=== PATIENT | male | born 1960 | race Caucasian/White ===

== ENCOUNTER 2017-07-23 14:06 | Observation (INO) | payer OTHER, SELFPAY ==
[2017-07-23] VITALS (9 sets, daily range): BP systolic 100–140; BP diastolic 63–86; PULSE 73–115; RESP 16–20; TEMP 36.6–37.3; O2SAT 96–100; BMI 21.6; BMI 20.7
[2017-07-23] MEDS: 0.9% Normal Saline 1,000 ML 1000 ML IV (14:59)
[2017-07-23 15:06] LABS: Absolute Neutrophil Count 8.5 X10^3/uL (2.0-7.7); Basophil# 0.05 X10^3/uL; Basophil% 0.4 % (0-1); Eosinophil# 0.03 X10^3/uL; Eosinophils% 0.3 % (0-5); Hematocrit 31.9 % (40-54); Hemoglobin 10.9 g/dl (13.0-16.5); Lymphocyte % 15.7 % (19-41); Mean Corp Hgb Conc 34.2 g/gl (32-36); Mean Corpuscular Hgb 31.1 pg (27.0-32.0); Mean Corpuscular Volume 91.1 fL (80-94); Mean Platelet Vol. 10.2 fl (6.2-12.0); Monocyte# 1.06 X10^3/uL; Monocyte% 9.2 % (0-10); Neutrophil # 8.48 X10^3/uL (2.7-7.7); Platelet Count 261 K/mm3 (150-450); RBC Distribution Width SD 37.7 fl (35.1-43.9); White Blood Count 11.5 K/mm3 (4.4-11.0)
[2017-07-23 15:10] LABS: Anion Gap 7 (5-15); BUN 48 mg/dL (7-18); BUN/Creat Ratio 41.4 RATIO (10-20); Calcium,Total 8.1 mg/dL (8.5-10.1); Chloride 109 mmol/L (98-107); Creatinine, Serum 1.16 mg/dL (0.70-1.30); EST Glomerular Filtration Rate 69 mL/min (>60); Est Glom Filt Rate - Afr Amer 83 mL/min (>60); Glucose 124 mg/dL (74-106); Sodium Level 139 mmol/L (136-145)
[2017-07-23 15:11] LABS: POSITIVE COUNT NO; POSITIVE DIFFERENTIAL NO; POSITIVE MORPHOLOGY NO
--- NOTE | 2017-07-23 15:37 | ED.VISSUMM ---
- ER Visit Summary Date of Service: 07/23/17 Chief Complaint: ['s of breath and lightheadedness] History of Present Illness: The patient is a 56 M [presents the emergency department with shortness of breath with exertion and lightheadedness. Patient states that symptoms worse with walking. Patient denies any chest pain. Patient has noted black tarry stool. Patient denies any vomiting or hematemesis. Patient has had no appetite. No history of bleeding ulcers. Patient has a history of coronary artery disease with three-vessel CABG last year. Patient is on Plavix.] Physical Examination: [HEENT-PERRLA, EOMI. Cranial nerves II through XII grossly intact. TMs clear. Mucous membranes moist. No adenopathy. Cardiovascular-regular rate and rhythm without murmur or ectopy Lungs-clear to auscultation, chest wall stable without crepitus or subcu emphysema Abdomen-normoactive bowel sounds, soft, nontender, no rebound or rigidity, no peritoneal signs. Rectal exam-has black tarry stool that Hemoccult positive, no masses noted in the rectal vault. Extremities-intact ?4, normal range of motion, normal pulses, atraumatic] Test Results: [CBC with differential obtained showed a white count of 11.5, hemoglobin 10.9, hematocrit 32, platelets 261. Chemistries unremarkable. BUN was 48 and creatinine was 1.16. Hemoccult was positive. Orthostatic vital signs pending.] Emergency Department Course and Treatment: [I suspect an upper GI bleed at this time. Patient case was discussed with Dr. Arun Crum who will see patient tomorrow for possible EGD. Case also discussed with hospitalist Dr. Alek Steinberg who will evaluate patient for admission.] Patient treated with Protonix 80 mg IV Treatment Plan: [Admit] Disposition: [Admit] Impression: [Upper GI bleed Anemia] This note was generated with [employer] dictation software. It may contain incorrect words, spelling, and punctuation that were not noted in review of the chart prior to signing ED Disposition - Plan for ED Patient: Chief Complaint: Shortness of Breath Referrals: Phu Banks MD [Primary Care Provider] -
--- NOTE | 2017-07-23 15:40 | EKG12_ITS ---
Test Reason : SOB Blood Pressure : / mmHG Vent. Rate : 082 BPM Atrial Rate : 082 BPM P-R Int : 118 ms QRS Dur : 090 ms QT Int : 414 ms P-R-T Axes : 046 -02 070 degrees QTc Int : 483 ms Normal sinus rhythm Nonspecific T wave abnormality Prolonged QT Abnormal ECG Confirmed by KELLY PEREA ([id number]), acquisitions editor NATE ALDRIDGE ([id number] on 07/27/2017 4:01:52 PM Referred By: JENNIFER Confirmed By:KELLY PEREA
--- NOTE | 2017-07-23 15:41 | PCM.HP.STD ---
Problem List (1) Carotid artery disease Status: Chronic Qualifiers: (2) History of coronary artery stent placement Status: Chronic Comment: PCI and NILS to mid LCX 02/28/16 @ [facility] (3) Ischemic cardiomyopathy Status: Chronic (4) S/P CABG (coronary artery bypass graft) Status: Chronic Comment: CABG x3, CASTRO to LAD, reverse saphenous vein to 1st diag and 1st OM; endoscopic vein harvesting, greater saphenous vein Rt Leg 04/13/16 @ [facility] (5) Coronary atherosclerosis of [place] coronary vessel Status: Chronic (6) Acute non-ST elevation myocardial infarction (NSTEMI) Status: Resolved (7) HTN (hypertension) Status: Chronic Qualifiers: (8) HLD (hyperlipidemia) Status: Chronic Qualifiers: History of Present Illness Date of Admission: 07/23/17 Chief Complaint: Shortness of breath, lightheadedness, dark stool. The patient is a 56 year old M who presents to the emergency room with black tarry stool for 2 days as well as associated shortness of breath and lightheadedness. Denies syncope. Denies nausea, vomiting, diarrhea. Denies abdominal pain. He states he has never had black stools in the past. Never had an EGD/colonoscopy. No history of GI bleed/ulcers. No frequent NSAID use. Patient is on aspirin and Plavix for history of CAD with three-vessel CABG March 2016. His other past medical history includes ischemic cardiomyopathy, hypertension, hyperlipidemia. Past Medical History Past Medical History (Chronic Problems): Chronic Problems (Last Updated 04/30/17 @ 09:15 by Bonita Latif) Carotid artery disease (Chronic) History of coronary artery stent placement (Chronic) PCI and NILS to mid LCX 02/28/16 @ [facility] Ischemic cardiomyopathy (Chronic) S/P CABG (coronary artery bypass graft) (Chronic) CABG x3, CASTRO to LAD, reverse saphenous vein to 1st diag and 1st OM; endoscopic vein harvesting, greater saphenous vein Rt Leg 04/13/16 @ [facility] Coronary atherosclerosis of [place] coronary vessel (Chronic) HTN (hypertension) (Chronic) HLD (hyperlipidemia) (Chronic) Allergies No Known Allergies Allergy (Verified 07/23/17 14:08) Home Medications: Ambulatory Orders Medication Instructions Recorded Aspirin E.C. [Ecotrin] 81 mg PO DAILY@0800 05/12/16 Mometasone/Formoterol [Dulera 100 1 puff IH DAILY 05/12/16 Mcg/5 Mcg Inhaler] Clopidogrel Bisulfate [Plavix] 75 mg PO DAILY 07/23/17 Metoprolol Tartrate [Lopressor 25 mg PO BID 07/23/17 (beta kriss)] Surgical History: appendectomy, herniorrhaphy - Hernia repair R&L inguinal, rotator cuff repair - Left rotator cuff , - - CABG ?3 Psychiatric History: No pertinent psych hx Lives: With Family - Lives with brother Smoking Status: Never smoker Tobacco Use: Non-smoker Alcohol: Occasional Drugs: None - *Family History Maternal History Items: Heart Disease Paternal History Items: Heart Disease Review of Systems Constitutional: Reports: Fatigue. Denies: Chills, Fever, Weight Change HEENT: Denies: Head Aches, Sinus Congestion, Sinus Drainage Cardiovascular: Reports: Light Headedness. Denies: Chest Pain, Palpitations, Syncope Respiratory: Reports: Shortness of Breath. Denies: Cough, Shortness of breath at rest, Sputum production Gastrointestinal: Denies: Abdominal Pain, Nausea, Vomiting Genitourinary: Denies: Dysuria Musculoskeletal: Denies: Joint Pain, Joint Tenderness Skin: Denies: Rash, Wounds Neurological: Denies: Numbness, Tingling, Focal weakness Psychiatric: Denies: Anxiety, Depression, Homicidal Ideations, Suicidal Ideations Hematologic/ Lymphatic: Denies: Easy Bruising, Easy Bleeding VTE Information - Inpt Only VTE Present on Admission: No VTE Mechan Device Prophylaxis: SCD's VTE Pharm Prophylaxis ordered?: No Reason prophylaxis not ordered:: Medical Contraindication - Physical Exam General: Alert, Oriented x3, Cooperative, No apparent distress HEENT: Atraumatic, PERRLA, EOMI, Normocephalic Neck: Supple, No JVD, Negative Carotid Bruits Lungs: Clear to auscultation, Normal air movement Cardiovascular: Regular rate, Regular Rhythm, Normal S1, Normal S2, No murmurs Abdomen: Bowel Sounds Present, Soft, Non Tender, Non-Distended Extremities: No clubbing, No cyanosis, No edema, Capillary Refill Less than 3 Seconds Skin: No rashes, No breakdown Musculoskeletal: No Tenderness to Palpation of Joints or Extremities Neurological: Cranial nerves II-XII grossly intact, Neuro grossly intact Psych/Mental Status: Normal Affect, Appropriate Vital Signs Temp Pulse Resp BP Pulse Ox 98 F 86 20 H 120/81 H 100 07/23/17 14:08 07/23/17 15:26 07/23/17 15:26 07/23/17 15:26 07/23/17 14:08 Oxygen Delivery Method Room Air Weight: 64.5 kg Body Mass Index (BMI) 21.6 Microbiology Past 72 Hours 07/23/17 14:42 Stool Occult Blood (LUISA) - Final Stool Occult Blood Positive Laboratory Tests Past 24 Hrs 07/23/17 07/23/17 07/23/17 14:34 14:34 14:34 WBC 11.5 H RBC 3.50 L Hgb 10.9 L Hct 31.9 L MCV 91.1 MCH 31.1 MCHC 34.2 RDW 12.0 RDW Differential 37.7 Plt Count 261 MPV 10.2 Immature Gran % (Auto) 0.400 Neut % (Auto) 74.0 H Lymph % (Auto) 15.7 L [place] % (Auto) 9.2 Eos % (Auto) 0.3 Baso % (Auto) 0.4 Absolute Neuts (auto) 8.5 H Absolute Lymphs (auto) 1.80 Total Counted Not Reportable Sodium 139 Potassium 4.0 Chloride 109 H Carbon Dioxide 23.0 Anion Gap 7 BUN 48 H Creatinine 1.16 Estim Creat Clear Calc 64.10 Est GFR (MDRD) Af Amer 83 Est GFR (MDRD) Non-Af 69 BUN/Creatinine Ratio 41.4 H Glucose 124 H Calcium 8.1 L Blood Type O POSITIVE Antibody Screen NEGATIVE Assessment/Plan 1. Hematochezia, suspected upper GI bleed-patient reports black tarry stools ?2 days with associated shortness of breath and dizziness. Stool positive for occult blood. Dr. Crum consulted who will perform EGD tomorrow. Continue IV Protonix. Hold aspirin and Plavix. 2. Acute blood loss anemia, secondary to #1-baseline hemoglobin 15. Hemoglobin on admission 10.9. Serial H&H. 3. Coronary artery disease, status post CABG ?3-aspirin, Plavix on hold secondary to #1. Continue metoprolol. 4. Ischemic cardiomyopathy-echocardiogram September 2016 showed an EF of 50%. 5. Hypertension-stable, continue home metoprolol regimen. 6. Hyperlipidemia-not on statin. DVT prophylaxis-SCDs, pharmacologic prophylaxis contraindicated given acute GI bleed. This patient was seen by ANT Peña under the supervision of Dr. Steinberg.
--- NOTE | 2017-07-23 15:51 | HP.PCM_ITS ---
Problem List (1) Carotid artery disease Status: Chronic Qualifiers: (2) History of coronary artery stent placement Status: Chronic Comment: PCI and NILS to mid LCX 02/28/16 @ [facility] (3) Ischemic cardiomyopathy Status: Chronic (4) S/P CABG (coronary artery bypass graft) Status: Chronic Comment: CABG x3, CASTRO to LAD, reverse saphenous vein to 1st diag and 1st OM; endoscopic vein harvesting, greater saphenous vein Rt Leg 04/13 @ [facility] (5) Coronary atherosclerosis of [place] coronary vessel Status: Chronic (6) Acute non-ST elevation myocardial infarction (NSTEMI) Status: Resolved (7) HTN (hypertension) Status: Chronic Qualifiers: (8) HLD (hyperlipidemia) Status: Chronic Qualifiers: History of Present Illness Date of Admission: 07/23/17 Chief Complaint: Shortness of breath, lightheadedness, dark stool. The patient is a 56 year old M who presents to the emergency room with black tarry stool for 2 days as well as associated shortness of breath and lightheadedness. Denies syncope. Denies nausea, vomiting, diarrhea. Denies abdominal pain. He states he has never had black stools in the past. Never had an EGD/colonoscopy. No history of GI bleed/ulcers. No frequent NSAID use. Patient is on aspirin and Plavix for history of CAD with three-vessel CABG March 2016. His other past medical history includes ischemic cardiomyopathy, hypertension, hyperlipidemia. Past Medical History Past Medical History (Chronic Problems): Chronic Problems (Last Updated 04/30/17 @ 09:15 by Bonita Latif) Carotid artery disease (Chronic) History of coronary artery stent placement (Chronic) PCI and NILS to mid LCX 02/28/16 @ [facility] Ischemic cardiomyopathy (Chronic) S/P CABG (coronary artery bypass graft) (Chronic) CABG x3, CASTRO to LAD, reverse saphenous vein to 1st diag and 1st OM; endoscopic vein harvesting, greater saphenous vein Rt Leg 04/13/16 @ [facility] Coronary atherosclerosis of [place] coronary vessel (Chronic) HTN (hypertension) (Chronic) HLD (hyperlipidemia) (Chronic) Allergies No Known Allergies Allergy (Verified 07/23/17 14:08) Home Medications: Ambulatory Orders Medication Instructions Recorded Aspirin E.C. [Ecotrin] 81 mg PO DAILY@0800 05/12/16 Mometasone/Formoterol [Dulera 100 1 puff IH DAILY 05/12/16 Mcg/5 Mcg Inhaler] Clopidogrel Bisulfate [Plavix] 75 mg PO DAILY 07/23/17 Metoprolol Tartrate [Lopressor 25 mg PO BID 07/23/17 (beta kriss)] Surgical History: appendectomy, herniorrhaphy - Hernia repair R&L inguinal, rotator cuff repair - Left rotator cuff , - - CABG ?3 Psychiatric History: No pertinent psych hx Lives: With Family - Lives with brother Smoking Status: Never smoker Tobacco Use: Non-smoker Alcohol: Occasional Drugs: None - *Family History Maternal History Items: Heart Disease Paternal History Items: Heart Disease Review of Systems Constitutional: Reports: Fatigue. Denies: Chills, Fever, Weight Change HEENT: Denies: Head Aches, Sinus Congestion, Sinus Drainage Cardiovascular: Reports: Light Headedness. Denies: Chest Pain, Palpitations, Syncope Respiratory: Reports: Shortness of Breath. Denies: Cough, Shortness of breath at rest, Sputum production Gastrointestinal: Denies: Abdominal Pain, Nausea, Vomiting Genitourinary: Denies: Dysuria Musculoskeletal: Denies: Joint Pain, Joint Tenderness Skin: Denies: Rash, Wounds Neurological: Denies: Numbness, Tingling, Focal weakness Psychiatric: Denies: Anxiety, Depression, Homicidal Ideations, Suicidal Ideations Hematologic/ Lymphatic: Denies: Easy Bruising, Easy Bleeding VTE Information - Inpt Only VTE Present on Admission: No VTE Mechan Device Prophylaxis: SCD's VTE Pharm Prophylaxis ordered?: No Reason prophylaxis not ordered:: Medical Contraindication - Physical Exam General: Alert, Oriented x3, Cooperative, No apparent distress HEENT: Atraumatic, PERRLA, EOMI, Normocephalic Neck: Supple, No JVD, Negative Carotid Bruits Lungs: Clear to auscultation, Normal air movement Cardiovascular: Regular rate, Regular Rhythm, Normal S1, Normal S2, No murmurs Abdomen: Bowel Sounds Present, Soft, Non Tender, Non-Distended Extremities: No clubbing, No cyanosis, No edema, Capillary Refill Less than 3 Seconds Skin: No rashes, No breakdown Musculoskeletal: No Tenderness to Palpation of Joints or Extremities Neurological: Cranial nerves II-XII grossly intact, Neuro grossly intact Psych/Mental Status: Normal Affect, Appropriate Vital Signs Temp Pulse Resp BP Pulse Ox 98 F 86 20 H 120/81 H 100 07/23/17 14:08 07/23/17 15:26 07/23/17 15:26 07/23/17 15:26 07/23/17 14:08 Oxygen Delivery Method Room Air Weight: 64.5 kg Body Mass Index (BMI) 21.6 Microbiology Past 72 Hours 07/23/17 14:42 Stool Occult Blood (LUISA) - Final Stool Occult Blood Positive Laboratory Tests Past 24 Hrs 07/23/17 07/23/17 07/23/17 14:34 14:34 14:34 WBC 11.5 H RBC 3.50 L Hgb 10.9 L Hct 31.9 L MCV 91.1 MCH 31.1 MCHC 34.2 RDW 12.0 RDW Differential 37.7 Plt Count 261 MPV 10.2 Immature Gran % (Auto) 0.400 Neut % (Auto) 74.0 H Lymph % (Auto) 15.7 L [place] % (Auto) 9.2 Eos % (Auto) 0.3 Baso % (Auto) 0.4 Absolute Neuts (auto) 8.5 H Absolute Lymphs (auto) 1.80 Total Counted Not Reportable Sodium 139 Potassium 4.0 Chloride 109 H Carbon Dioxide 23.0 Anion Gap 7 BUN 48 H Creatinine 1.16 Estim Creat Clear Calc 64.10 Est GFR (MDRD) Af Amer 83 Est GFR (MDRD) Non-Af 69 BUN/Creatinine Ratio 41.4 H Glucose 124 H Calcium 8.1 L Blood Type O POSITIVE Antibody Screen NEGATIVE Assessment/Plan 1. Hematochezia, suspected upper GI bleed-patient reports black tarry stools ? 2 days with associated shortness of breath and dizziness. Stool positive for occult blood. Dr. Crum consulted who will perform EGD tomorrow. Continue IV Protonix. Hold aspirin and Plavix. 2. Acute blood loss anemia, secondary to #1-baseline hemoglobin 15. Hemoglobin on admission 10.9. Serial H&H. 3. Coronary artery disease, status post CABG ?3-aspirin, Plavix on hold secondary to #1. Continue metoprolol. 4. Ischemic cardiomyopathy-echocardiogram September 2016 showed an EF of 50%. 5. Hypertension-stable, continue home metoprolol regimen. 6. Hyperlipidemia-not on statin. DVT prophylaxis-SCDs, pharmacologic prophylaxis contraindicated given acute GI bleed. This patient was seen by ANT Peña under the supervision of Dr. Steinberg.
--- NOTE | 2017-07-23 17:21 | PCA ---
rn in with pt
[2017-07-23 17:40] LABS: Hematocrit 29.6 % (40-54); Hemoglobin 9.9 g/dl (13.0-16.5)
[2017-07-23] MEDS: Metoprolol Tartrate 25 MG Tablet PO (22:05)
[2017-07-23] MEDS: 0.9% NaCl Peripheral Flush Adult/Peds IV (22:13)
[2017-07-23 22:59] LABS: Hematocrit 26.2 % (40-54); Hemoglobin 8.9 g/dl (13.0-16.5)
[2017-07-24] VITALS (10 sets, daily range): BP systolic 93–126; BP diastolic 54–67; PULSE 66–81; RESP 16–18; TEMP 36.5–36.9; O2SAT 95–100
[2017-07-24 08:51] LABS: Hemoglobin 9.4 g/dl (13.0-16.5)
[2017-07-24] MEDS: Metoprolol Tartrate 25 MG Tablet PO ×2 (09:06→22:13)
[2017-07-24] MEDS: 0.9% NaCl Peripheral Flush Adult/Peds IV ×2 (09:20→22:16)
--- NOTE | 2017-07-24 09:35 | PCM.PROGNOTE ---
Subjective: Patient seen and examined. States he had a another episode of black stool last evening. No further bowel movement. Denies dizziness, lightheadedness. Denies chest pain, shortness of breath. Aware of plan for EGD/colonoscopy tomorrow. Denies further complaints or concerns. - Physical Exam General: Alert, Oriented x3, Cooperative, No apparent distress HEENT: Atraumatic, PERRLA, EOMI, Normocephalic Neck: Supple, No JVD, Negative Carotid Bruits Lungs: Clear to auscultation, Normal air movement Cardiovascular: Regular rate, Regular Rhythm, Normal S1, Normal S2, No murmurs Abdomen: Bowel Sounds Present, Soft, Non Tender, Non-Distended Extremities: No clubbing, No cyanosis, No edema, Capillary Refill Less than 3 Seconds Skin: No rashes, No breakdown Musculoskeletal: No Tenderness to Palpation of Joints or Extremities Neurological: Cranial nerves II-XII grossly intact, Neuro grossly intact Psych/Mental Status: Normal Affect, Appropriate Vital Signs Temp Pulse Resp BP Pulse Ox 97.7 F L 75 16 102/67 98 07/24/17 08:58 07/24/17 09:06 07/24/17 08:58 07/24/17 09:06 07/24/17 08:58 Oxygen Delivery Method Room Air Weight: 61.9 kg Body Mass Index (BMI) 20.7 Intake and Output for Last 24 Hours 07/22/17 07/23/17 07/24/17 23:59 23:59 23:59 Intake Total 100 / 100 1100 / 1100 Output Total 350 / 350 750 / 750 Balance -250 / -250 350 / 350 Laboratory Tests Past 24 Hrs 07/23/17 07/23/17 07/24/17 17:18 22:30 08:40 Hgb 9.9 L 8.9 L 9.4 L Hct 29.6 L 26.2 L 28.0 L Medical Necessity - Tobacco Use Smoking Status: Never smoker Tobacco Use: Non-smoker Assessment/Plan Patient is a 56-year-old male admitted 07/23/17 shortness of breath, lightheadedness, dark stool. His past medical history includes CAD, three-vessel CABG, ischemic cardiomyopathy, hypertension, hyperlipidemia. 1. Hematochezia, suspected upper GI bleed-patient reports black tarry stools ?2 days with associated shortness of breath and dizziness. Stool positive for occult blood. Dr. Crum consulted. Continue IV Protonix. Hold aspirin and Plavix. N.p.o. at midnight for EGD/colonoscopy tomorrow. 2. Acute blood loss anemia, secondary to #1-baseline hemoglobin 15. Hemoglobin on admission 10.9. Hemoglobin now 9.4. Repeat H&H in morning. 3. Coronary artery disease, status post CABG ?3-aspirin, Plavix on hold secondary to #1. Continue metoprolol. 4. Ischemic cardiomyopathy-echocardiogram September 2016 showed an EF of 50%. 5. Hypertension-stable, continue home metoprolol regimen. 6. Hyperlipidemia-not on statin. DVT prophylaxis-SCDs, pharmacologic prophylaxis contraindicated given acute GI bleed. This patient was seen by ANT Peña under the supervision of Dr. Steinberg.
--- NOTE | 2017-07-24 09:41 | PN_ITS ---
Subjective: Patient seen and examined. States he had a another episode of black stool last evening. No further bowel movement. Denies dizziness, lightheadedness. Denies chest pain, shortness of breath. Aware of plan for EGD/colonoscopy tomorrow. Denies further complaints or concerns. - Physical Exam General: Alert, Oriented x3, Cooperative, No apparent distress HEENT: Atraumatic, PERRLA, EOMI, Normocephalic Neck: Supple, No JVD, Negative Carotid Bruits Lungs: Clear to auscultation, Normal air movement Cardiovascular: Regular rate, Regular Rhythm, Normal S1, Normal S2, No murmurs Abdomen: Bowel Sounds Present, Soft, Non Tender, Non-Distended Extremities: No clubbing, No cyanosis, No edema, Capillary Refill Less than 3 Seconds Skin: No rashes, No breakdown Musculoskeletal: No Tenderness to Palpation of Joints or Extremities Neurological: Cranial nerves II-XII grossly intact, Neuro grossly intact Psych/Mental Status: Normal Affect, Appropriate Vital Signs Temp Pulse Resp BP Pulse Ox 97.7 F L 75 16 102/67 98 07/24/17 08:58 07/24/17 09:06 07/24/17 08:58 07/24/17 09:06 07/24/17 08:58 Oxygen Delivery Method Room Air Weight: 61.9 kg Body Mass Index (BMI) 20.7 Intake and Output for Last 24 Hours 07/22/17 07/23/17 07/24/17 23:59 23:59 23:59 Intake Total 100 / 100 1100 / 1100 Output Total 350 / 350 750 / 750 Balance -250 / -250 350 / 350 Laboratory Tests Past 24 Hrs 07/23/17 07/23/17 07/24/17 17:18 22:30 08:40 Hgb 9.9 L 8.9 L 9.4 L Hct 29.6 L 26.2 L 28.0 L Medical Necessity - Tobacco Use Smoking Status: Never smoker Tobacco Use: Non-smoker Assessment/Plan Patient is a 56-year-old male admitted 07/23/17 shortness of breath, lightheadedness, dark stool. His past medical history includes CAD, three- vessel CABG, ischemic cardiomyopathy, hypertension, hyperlipidemia. 1. Hematochezia, suspected upper GI bleed-patient reports black tarry stools ? 2 days with associated shortness of breath and dizziness. Stool positive for occult blood. Dr. Crum consulted. Continue IV Protonix. Hold aspirin and Plavix. N.p.o. at midnight for EGD/colonoscopy tomorrow. 2. Acute blood loss anemia, secondary to #1-baseline hemoglobin 15. Hemoglobin on admission 10.9. Hemoglobin now 9.4. Repeat H&H in morning. 3. Coronary artery disease, status post CABG ?3-aspirin, Plavix on hold secondary to #1. Continue metoprolol. 4. Ischemic cardiomyopathy-echocardiogram September 2016 showed an EF of 50%. 5. Hypertension-stable, continue home metoprolol regimen. 6. Hyperlipidemia-not on statin. DVT prophylaxis-SCDs, pharmacologic prophylaxis contraindicated given acute GI bleed. This patient was seen by ANT Peña under the supervision of Dr. Steinberg.
--- NOTE | 2017-07-24 10:06 | CON.PCM_ITS ---
Problem List (1) GI bleed Status: Acute Qualifiers: GI bleed type/associated pathology: anorectal hemorrhage Qualified Code(s) : K62.5 - Hemorrhage of anus and rectum Reason for Consult Date of Consultation: 07/24/17 History of Present Illness: The patient is a 56 year old M who presents to the emergency room with black tarry stool for 2 days as well as associated shortness of breath and lightheadedness. Denies syncope. Denies nausea, vomiting, diarrhea. Denies abdominal pain. He states he has never had black stools in the past. Never had an EGD/colonoscopy. No history of GI bleed/ulcers. No frequent NSAID use. Patient is on aspirin and Plavix for history of CAD with three-vessel CABG March 2016. His other past medical history includes ischemic cardiomyopathy, hypertension, hyperlipidemia. Past Medical History Past Medical History (Chronic Problems): Chronic Problems (Last Updated 04/30/17 @ 09:15 by Bonita Latif) Carotid artery disease (Chronic) History of coronary artery stent placement (Chronic) PCI and NILS to mid LCX 02/28/16 @ [facility] Ischemic cardiomyopathy (Chronic) S/P CABG (coronary artery bypass graft) (Chronic) CABG x3, CASTRO to LAD, reverse saphenous vein to 1st diag and 1st OM; endoscopic vein harvesting, greater saphenous vein Rt Leg 04/13/16 @ [facility] Coronary atherosclerosis of [place] coronary vessel (Chronic) HTN (hypertension) (Chronic) HLD (hyperlipidemia) (Chronic) Allergies No Known Allergies Allergy (Verified 07/23/17 14:08) Home Medications: Ambulatory Orders Medication Instructions Recorded Aspirin E.C. [Ecotrin] 81 mg PO DAILY@0800 05/12/16 Mometasone/Formoterol [Dulera 100 1 puff IH DAILY 05/12/16 Mcg/5 Mcg Inhaler] Clopidogrel Bisulfate [Plavix] 75 mg PO DAILY 07/23/17 Metoprolol Tartrate [Lopressor 25 mg PO BID 07/23/17 (beta kriss)] Surgical History: appendectomy, herniorrhaphy - Hernia repair R&L inguinal, rotator cuff repair - Left rotator cuff , - - CABG ?3 Psychiatric History: No pertinent psych hx Lives: With Family - Lives with brother Smoking Status: Never smoker Tobacco Use: Non-smoker Alcohol: Occasional Drugs: None - *Family History Maternal History Items: Heart Disease Paternal History Items: Heart Disease Review of Systems Constitutional: Reports: Weakness, Fatigue. Denies: Chills, Fever Eyes: Denies: Blurred vision, Pain, Redness, Vision Change HEENT: Denies: Dysphasia, Ear Pain, Eye Pain, Head Aches, Hearing Changes, Sore Throat Cardiovascular: Reports: Light Headedness. Denies: Chest Pain, Chest Pressure, Chest Tightness, Palpitations Gastrointestinal: Reports: Hematochezia. Denies: Abdominal Pain Genitourinary: Denies: Dysuria, Frequency, Hematuria, Urgency Musculoskeletal: Denies: Joint Pain Hematologic/ Lymphatic: Reports: Easy Bruising, Easy Bleeding Patient Problems: Active and Suspected Problems (Last Updated 04/30/17 @ 09:15 by Bonita Latif) GI bleed (Acute) - Physical Exam General: Alert, Oriented x3 HEENT: Atraumatic, PERRLA, EOMI, Normocephalic Lungs: Clear to auscultation Cardiovascular: Regular rate, Regular Rhythm, No murmurs Abdomen: Bowel Sounds Present, Soft, Non Tender, Non-Distended Extremities: No clubbing, No cyanosis, No edema Skin: No rashes, No breakdown Psych/Mental Status: Normal Affect, Appropriate Vital Signs Temp Pulse Resp BP Pulse Ox 97.7 F L 75 16 102/67 98 07/24/17 08:58 07/24/17 09:06 07/24/17 08:58 07/24/17 09:06 07/24/17 08:58 Oxygen Delivery Method Room Air Weight: 136 lb 7.458 oz Body Mass Index (BMI) 20.7 Intake and Output for Last 24 Hours 07/22/17 07/23/17 07/24/17 23:59 23:59 23:59 Intake Total 100 / 100 1100 / 1100 Output Total 350 / 350 750 / 750 Balance -250 / -250 350 / 350 Laboratory Tests Past 24 Hrs 07/23/17 07/23/17 07/24/17 17:18 22:30 08:40 Hgb 9.9 L 8.9 L 9.4 L Hct 29.6 L 26.2 L 28.0 L Assessment/Plan Active and Suspected Problems (Last Updated 04/30/17 @ 09:15 by Bonita Latif) GI bleed (Acute) My plan is to perform both an upper and lower endoscopy on him on Wednesday. Risk benefits have been reviewed with the patient and the patient agrees to proceed. We will keep him on clear liquids and a bowel prep has been ordered for today.
[2017-07-24] MEDS: Electrolyte Solution/Peg's 4000 ML 2000 ML PO ×2 (11:17→21:03)
[2017-07-25] VITALS (9 sets, daily range): BP systolic 83–111; BP diastolic 48–69; PULSE 70–83; RESP 16–25; TEMP 36.6–36.9; O2SAT 95–99
[2017-07-25 06:16] LABS: Hematocrit 24.5 % (40-54); Hemoglobin 8.3 g/dl (13.0-16.5)
[2017-07-25 07:47] LABS: International Normalized Ratio 1.1
--- NOTE | 2017-07-25 09:07 | NURSING ---
Gave verbal report to Endo this am upon pt filler picker.
--- NOTE | 2017-07-25 09:29 | OP.PCM_ITS ---
Problem List (1) GI bleed Status: Acute Qualifiers: GI bleed type/associated pathology: anorectal hemorrhage Qualified Code(s) : K62.5 - Hemorrhage of anus and rectum Report of Operation Date of Procedure: 07/25/17 Pre-Operative Diagnosis: k62.5 GI bleed Post-Operative Diagnosis: Same Surgery/Procedure Performed:: 46386 esophagogastroduodenoscopy. 24383 colonoscopy Type of Anesthesia:: MAC Anesthesiologist: Marvel Ca Description of Procedure: Patient was brought into the endoscopy suite. Back of his throat was sprayed with benzocaine spray. A bite-block was placed. He was placed on the left lateral decubitus position. He was given graded anesthesia. Scope was inserted in the back of the oropharynx and directed down through the esophagus into the stomach and into the duodenum without difficulty. Operative findings: 1. Duodenum: Normal appearance no mass lesions no ulcerations no blood was identified normal pylorus. 2. Stomach: Irritation was identified in the prepyloric area no obvious ulcers were identified no mass lesions there was no blood located within the stomach. Retroflexion showed a small hiatal hernia. There was no signs of any mass lesions. 3. Esophagus: Significant esophagitis the area was extremely friable given the fact that he is still on Plavix I did not take any biopsies here but this is obviously a potential source for bleeding. There were significant islands of abnormal mucosa but nothing that looked malignant but Viveros's should be ruled out at some point we can get him off his anticoagulation. Just passing the scope through this area because irritation and bleeding. In my judgment biopsies were contraindicated. Colonoscope was inserted into the rectum. It was directed through the sigmoid colon, descending colon, transverse colon, ascending colon, to the cecum without difficulty operative findings: 1. Cecum: Normal appearance no mass lesions normal ileocecal valve. 2. Ascending colon: Normal appearance no mass lesions. 3. Transverse colon: Normal appearance no mass lesions. 4. Descending colon: Normal appearance no mass lesions scattered diverticuli 5. Sigmoid colon: Normal appearance no mass lesions moderate amount of diverticuli identified. 6. Rectum: Normal appearance no mass lesions retroflexion showed significant internal hemorrhoidal disease this however did not look like it had been actively bleeding but given the fact of the size and the number is certainly could be a potential source in the future. Patient will need to have another endoscopy probably in the order of 3 months to recheck this area after he has been placed on aggressive proton pump therapy. The next colonoscopy he will need to be in 10 years. - Admit VTE Documentation VTE Present on Admission: No VTE Mechan Device Prophylaxis: None VTE Pharm Prophylaxis ordered?: No Reason prophylaxis not ordered:: Treatment Not Indicated
[2017-07-25] MEDS: Metoprolol Tartrate 25 MG Tablet PO (10:33)
--- NOTE | 2017-07-25 11:03 | PCM.DC ---
- Discharge Diagnoses Current Active Problems: Current Active and Chronic Problems (Last Updated 04/30/17 @ 09:15 by Bonita Latif) GI bleed (Acute) You will use the following diet at home:: Cardiac Discharge Activity: Return to Normal Activity Call your doctor if you observe: Shortness of breath, Dizziness, Fainting spells, Chest pain, Increased palpitations (irregular heartbeat) Allergies/Adverse Reactions: Allergies No Known Allergies Allergy (Verified 07/23/17 14:08) Medications to take at Discharge Aspirin E.C. [Ecotrin] 81 mg PO DAILY@0800 05/12/16 Mometasone/Formoterol [Dulera 100 Mcg/5 Mcg Inhaler] 1 puff IH DAILY 05/12/16 Clopidogrel Bisulfate [Plavix] 75 mg PO DAILY 07/23/17 Metoprolol Tartrate [Lopressor (beta kriss)] 25 mg PO BID 07/23/17 Ferrous Sulfate 325 mg PO BIDCM #60 tab 07/25/17 Pantoprazole Sodium [Protonix] 40 mg PO BID #60 tab 07/25/17 The following prescriptions were given: Ferrous Sulfate 325 mg PO BIDCM #60 tab Pantoprazole Sodium [Protonix] 40 mg PO BID #60 tab Primary Care Physician: Phu Banks MD [Primary Care Provider] - Please follow up with your Primary Care Physician in: 1 Week Please Follow Up With: Arun Crum MD When: 4-6 Weeks Proposed Discharge Date: 07/25/17
--- NOTE | 2017-07-25 11:06 | DCINST_ITS ---
- Discharge Diagnoses Current Active Problems: Current Active and Chronic Problems (Last Updated 04/30/17 @ 09:15 by Bonita Latif) GI bleed (Acute) You will use the following diet at home:: Cardiac Discharge Activity: Return to Normal Activity Call your doctor if you observe: Shortness of breath, Dizziness, Fainting spells , Chest pain, Increased palpitations (irregular heartbeat) Allergies/Adverse Reactions: Allergies No Known Allergies Allergy (Verified 07/23/17 14:08) Medications to take at Discharge Aspirin E.C. [Ecotrin] 81 mg PO DAILY@0800 05/12/16 Mometasone/Formoterol [Dulera 100 Mcg/5 Mcg Inhaler] 1 puff IH DAILY 05/12/16 Clopidogrel Bisulfate [Plavix] 75 mg PO DAILY 07/23/17 Metoprolol Tartrate [Lopressor (beta kriss)] 25 mg PO BID 07/23/17 Ferrous Sulfate 325 mg PO BIDCM #60 tab 07/25/17 Pantoprazole Sodium [Protonix] 40 mg PO BID #60 tab 07/25/17 The following prescriptions were given: Ferrous Sulfate 325 mg PO BIDCM #60 tab Pantoprazole Sodium [Protonix] 40 mg PO BID #60 tab Primary Care Physician: Phu Banks MD [Primary Care Provider] - Please follow up with your Primary Care Physician in: 1 Week Please Follow Up With: Arun Crum MD When: 4-6 Weeks Proposed Discharge Date: 07/25/17
--- NOTE | 2017-07-25 11:06 | PCM.DC.SUM ---
Discharge Date and Diagnosis Date of Admission: 07/23/17 Date of Discharge: 07/25/17 - Primary Discharge Diagnosis Active and Suspected Problems (Last Updated 04/30/17 @ 09:15 by Bonita Latif) 1. Upper GI bleed- secondary to esophagitis 2. Acute blood loss anemia, secondary to #1 3. Coronary artery disease status post CABG ?3 4. Ischemic cardiomyopathy 5. Hypertension 6. Hyperlipidemia - Secondary Discharge Diagnosis Chronic Problems (Last Updated 04/30/17 @ 09:15 by Bonita Latif) Carotid artery disease (Chronic) History of coronary artery stent placement (Chronic) PCI and NILS to mid LCX 02/28/16 @ [facility] Ischemic cardiomyopathy (Chronic) S/P CABG (coronary artery bypass graft) (Chronic) CABG x3, CASTRO to LAD, reverse saphenous vein to 1st diag and 1st OM; endoscopic vein harvesting, greater saphenous vein Rt Leg 04/13/16 @ [facility] Coronary atherosclerosis of [place] coronary vessel (Chronic) HTN (hypertension) (Chronic) HLD (hyperlipidemia) (Chronic) Hospital Course and Treatment Dr. Crum- Surgery Operations: None Procedures: Colonoscopy, EGD Summary of Care Provided: Patient is a 56-year-old male admitted 07/23/17 shortness of breath, lightheadedness, dark stool. His past medical history includes CAD, three-vessel CABG, ischemic cardiomyopathy, hypertension, hyperlipidemia. 1. Upper GI bleed secondary to esophagitis-patient reports black tarry stools ?2 days with associated shortness of breath and dizziness. Stool positive for occult blood. Dr. Crum consulted. Patient underwent EGD and colonoscopy. Colonoscopy was noted to be normal. EGD showed significant esophagitis. No biopsies were taken due to patient being on Plavix. Patient will follow up with Dr. Crum in 4-6 weeks with plans of repeat endoscopy in 3 months. Repeat colonoscopy in 10 years. Patient will be discharged on Protonix 40 mg twice daily. Follow-up with primary care physician in 1 week. 2. Acute blood loss anemia, secondary to #1-hemoglobin stable. Patient will begin ferrous sulfate 325 twice daily at discharge. 3. Coronary artery disease, status post CABG ?3-continue aspirin, Plavix, metoprolol. 4. Ischemic cardiomyopathy-echocardiogram September 2016 showed an EF of 50%. 5. Hypertension-stable, continue home metoprolol regimen. 6. Hyperlipidemia-not on statin. General: Alert, Oriented x3, Cooperative, No apparent distress HEENT: Atraumatic, PERRLA, EOMI, Normocephalic Neck: Supple, No JVD, Negative Carotid Bruits Lungs: Clear to auscultation, Normal air movement Cardiovascular: Regular rate, Regular Rhythm, Normal S1, Normal S2, No murmurs Abdomen: Bowel Sounds Present, Soft, Non Tender, Non-Distended Extremities: No clubbing, No cyanosis, No edema, Capillary Refill Less than 3 Seconds Skin: No rashes, No breakdown Musculoskeletal: No Tenderness to Palpation of Joints or Extremities Neurological: Cranial nerves II-XII grossly intact, Neuro grossly intact Psych/Mental Status: Normal Affect, Appropriate Patient seen and examined her discharge. Physical assessment as noted above. Patient stable for discharge home with recommendations as noted above. This patient was seen by ANT Peña under the supervision of Dr. Steinberg. Discharge Activity: Return to Normal Activity Call your doctor if you observe: Shortness of breath, Dizziness, Fainting spells, Chest pain, Increased palpitations (irregular heartbeat) Home Medications: Medications to take at Discharge Aspirin E.C. [Ecotrin] 81 mg PO DAILY@0800 05/12/16 Mometasone/Formoterol [Dulera 100 Mcg/5 Mcg Inhaler] 1 puff IH DAILY 05/12/16 Clopidogrel Bisulfate [Plavix] 75 mg PO DAILY 07/23/17 Metoprolol Tartrate [Lopressor (beta kriss)] 25 mg PO BID 07/23/17 Ferrous Sulfate 325 mg PO BIDCM #60 tab 07/25/17 Pantoprazole Sodium [Protonix] 40 mg PO BID #60 tab 07/25/17 Following Prescrptions Were Given to Patient: Ferrous Sulfate 325 mg PO BIDCM #60 tab Pantoprazole Sodium [Protonix] 40 mg PO BID #60 tab Primary Care Physician: Phu Banks MD [Primary Care Provider] - Please follow up with your Primary Care Physician in: 1 Week Please Follow Up With: Arun Crum MD When: 4-6 Weeks Medical Necessity - Tobacco Use Smoking Status: Never smoker Tobacco Use: Non-smoker Meaningful Use Info Meaningful Use Diagnoses (Choose all that apply): None applicable
--- NOTE | 2017-07-25 11:13 | DS.PCM_ITS ---
Discharge Date and Diagnosis Date of Admission: 07/23/17 Date of Discharge: 07/25/17 - Primary Discharge Diagnosis Active and Suspected Problems (Last Updated 04/30/17 @ 09:15 by Bonita Latif) 1. Upper GI bleed- secondary to esophagitis 2. Acute blood loss anemia, secondary to #1 3. Coronary artery disease status post CABG ?3 4. Ischemic cardiomyopathy 5. Hypertension 6. Hyperlipidemia - Secondary Discharge Diagnosis Chronic Problems (Last Updated 04/30/17 @ 09:15 by Bonita Latif) Carotid artery disease (Chronic) History of coronary artery stent placement (Chronic) PCI and NILS to mid LCX 02/28/16 @ [facility] Ischemic cardiomyopathy (Chronic) S/P CABG (coronary artery bypass graft) (Chronic) CABG x3, CASTRO to LAD, reverse saphenous vein to 1st diag and 1st OM; endoscopic vein harvesting, greater saphenous vein Rt Leg 04/13/16 @ [facility] Coronary atherosclerosis of [place] coronary vessel (Chronic) HTN (hypertension) (Chronic) HLD (hyperlipidemia) (Chronic) Hospital Course and Treatment Dr. Crum- Surgery Operations: None Procedures: Colonoscopy, EGD Summary of Care Provided: Patient is a 56-year-old male admitted 07/23/17 shortness of breath, lightheadedness, dark stool. His past medical history includes CAD, three- vessel CABG, ischemic cardiomyopathy, hypertension, hyperlipidemia. 1. Upper GI bleed secondary to esophagitis-patient reports black tarry stools ? 2 days with associated shortness of breath and dizziness. Stool positive for occult blood. Dr. Crum consulted. Patient underwent EGD and colonoscopy. Colonoscopy was noted to be normal. EGD showed significant esophagitis. No biopsies were taken due to patient being on Plavix. Patient will follow up with Dr. Crum in 4-6 weeks with plans of repeat endoscopy in 3 months. Repeat colonoscopy in 10 years. Patient will be discharged on Protonix 40 mg twice daily. Follow-up with primary care physician in 1 week. 2. Acute blood loss anemia, secondary to #1-hemoglobin stable. Patient will begin ferrous sulfate 325 twice daily at discharge. 3. Coronary artery disease, status post CABG ?3-continue aspirin, Plavix, metoprolol. 4. Ischemic cardiomyopathy-echocardiogram September 2016 showed an EF of 50%. 5. Hypertension-stable, continue home metoprolol regimen. 6. Hyperlipidemia-not on statin. General: Alert, Oriented x3, Cooperative, No apparent distress HEENT: Atraumatic, PERRLA, EOMI, Normocephalic Neck: Supple, No JVD, Negative Carotid Bruits Lungs: Clear to auscultation, Normal air movement Cardiovascular: Regular rate, Regular Rhythm, Normal S1, Normal S2, No murmurs Abdomen: Bowel Sounds Present, Soft, Non Tender, Non-Distended Extremities: No clubbing, No cyanosis, No edema, Capillary Refill Less than 3 Seconds Skin: No rashes, No breakdown Musculoskeletal: No Tenderness to Palpation of Joints or Extremities Neurological: Cranial nerves II-XII grossly intact, Neuro grossly intact Psych/Mental Status: Normal Affect, Appropriate Patient seen and examined her discharge. Physical assessment as noted above. Patient stable for discharge home with recommendations as noted above. This patient was seen by ANT Peña under the supervision of Dr. Steinberg. Discharge Activity: Return to Normal Activity Call your doctor if you observe: Shortness of breath, Dizziness, Fainting spells , Chest pain, Increased palpitations (irregular heartbeat) Home Medications: Medications to take at Discharge Aspirin E.C. [Ecotrin] 81 mg PO DAILY@0800 05/12/16 Mometasone/Formoterol [Dulera 100 Mcg/5 Mcg Inhaler] 1 puff IH DAILY 05/12/16 Clopidogrel Bisulfate [Plavix] 75 mg PO DAILY 07/23/17 Metoprolol Tartrate [Lopressor (beta kriss)] 25 mg PO BID 07/23/17 Ferrous Sulfate 325 mg PO BIDCM #60 tab 07/25/17 Pantoprazole Sodium [Protonix] 40 mg PO BID #60 tab 07/25/17 Following Prescrptions Were Given to Patient: Ferrous Sulfate 325 mg PO BIDCM #60 tab Pantoprazole Sodium [Protonix] 40 mg PO BID #60 tab Primary Care Physician: Phu Banks MD [Primary Care Provider] - Please follow up with your Primary Care Physician in: 1 Week Please Follow Up With: Arun Crum MD When: 4-6 Weeks Medical Necessity - Tobacco Use Smoking Status: Never smoker Tobacco Use: Non-smoker Meaningful Use Info Meaningful Use Diagnoses (Choose all that apply): None applicable
== END 2017-07-25 11:40 | disposition home or self-care (01) ==
LOC: ED 14:50 → MS3 16:38
PROVIDERS: Anesthesiology; Nurse Practitioner Family; Surgery; Admitting Provider Internal Medicine; Emergency Provider Emergency Medicine; Family Provider Family Medicine; PCP Family Medicine; Visit Provider Internal Medicine
PROC: 0DJD8ZZ Inspection of Lower Intestinal Tract, Via Natural or Artificial Opening Endoscopic (ICD-10-PCS; CPT 45378; principal; 2017-07-25 09:00)
DX: K20.9 Esophagitis, unspecified (principal); K92.2 Gastrointestinal hemorrhage, unspecified; K62.5 Hemorrhage of anus and rectum; D62 Acute posthemorrhagic anemia; I25.10 Atherosclerotic heart disease of native coronary artery without angina pectoris; Z95.1 Presence of aortocoronary bypass graft; I25.5 Ischemic cardiomyopathy; I10 Essential (primary) hypertension; E78.5 Hyperlipidemia, unspecified; I25.2 Old myocardial infarction; Z79.82 Long term (current) use of aspirin; Z79.02 Long term (current) use of antithrombotics/antiplatelets; Z79.899 Other long term (current) drug therapy; Z79.51 Long term (current) use of inhaled steroids; K44.9 Diaphragmatic hernia without obstruction or gangrene; K64.8 Other hemorrhoids
CPT/HCPCS: 43235; 45378; 36415; 80048; 82274; 85014; 85018; 85025; 85610; 85730; 86850; 86900; 93005; 96361; 96365; 96366; 96376; 97802; 99218; 99285; J7030; A4216; G0378; J1610; J3490

== ENCOUNTER → 2017-07-28 17:03 | Outpatient (CLI) | payer SELFPAY ==
[2017-07-28 17:51] LABS: Absolute Lymphocyte Count 1.22 X10^3/ul (0.83-4.51); Absolute Neutrophil Count 4.4 X10^3/uL (2.0-7.7); Basophil# 0.03 X10^3/uL; Basophil% 0.5 % (0-1); Eosinophil# 0.14 X10^3/uL; Eosinophils% 2.2 % (0-5); Hematocrit 24.9 % (40-54); Hemoglobin 8.2 g/dl (13.0-16.5); Lymphocyte # 1.22 X10^3/ul (4.0); Lymphocyte % 19.3 % (19-41); Mean Corp Hgb Conc 32.9 g/gl (32-36); Mean Corpuscular Hgb 30.9 pg (27.0-32.0); Mean Platelet Vol. 10.5 fl (6.2-12.0); Monocyte# 0.51 X10^3/uL; Monocyte% 8.1 % (0-10); Neutrophil % 69.4 % (47-70); POSITIVE COUNT NO; POSITIVE DIFFERENTIAL NO; POSITIVE MORPHOLOGY NO; Platelet Count 268 K/mm3 (150-450); RBC Distribution Width CV 12.8 % (11.6-14.6); RBC Distribution Width SD 41.2 fl (35.1-43.9); Red Blood Count 2.65 M/mm3 (4.6-6.2); White Blood Count 6.3 K/mm3 (4.4-11.0)
[2017-07-28 18:05] LABS: Iron 21 ug/dL (65-175); Iron Binding Capacity,Total 314 ug/dL (250-450); PERCENT IRON SATURATION 6.7 % (15.0-55.0)
== END ==
PROVIDERS: Family Provider Family Medicine; PCP Family Medicine; Visit Provider Family Medicine
DX: K92.2 Gastrointestinal hemorrhage, unspecified (principal)
CPT/HCPCS: 36415; 83540; 83550; 85025

== ENCOUNTER → 2018-02-01 09:15 | Outpatient (CLI) | payer OTHER, SELFPAY ==
[2018-02-01 10:22] LABS: AST(SGOT) 19 U/L (15-37); Alanine Aminotransfer ALT/SGPT 39 U/L (16-61); Albumin, Serum 3.7 g/dL (3.2-5.0); Alkaline Phosphatase 90 U/L (45-117); Bilirubin, Direct 0.12 mg/dL (0.00-0.30); Cholesterol 230 mg/dL (200); Globulin 3.6 g/dL (2.2-4.2); High Density Lipoprotein 58 mg/dL; Protein, Total 7.3 g/dL (6.4-8.2); Triglycerides 202 mg/dL; Very Low Density Lipoprotein 40 mg/dL (5-40)
== END ==
PROVIDERS: Family Provider Family Medicine; PCP Family Medicine; Referring Provider Internal Medicine Cardiovascular Disease; Visit Provider Internal Medicine Cardiovascular Disease
DX: E78.5 Hyperlipidemia, unspecified (principal)
CPT/HCPCS: 36415; 80061; 80076

== ENCOUNTER → 2018-10-12 10:03 | Outpatient (CLI) | payer OTHER, SELFPAY ==
[2018-08-08 10:30] VITALS: BMI 24.1
[2018-10-12 12:15] LABS: Anion Gap 7 (5-15); BUN 16 mg/dL (7-18); BUN/Creat Ratio 17.4 RATIO (10-20); Calcium,Total 9.1 mg/dL (8.5-10.1); Chloride 105 mmol/L (98-107); Cholesterol 244 mg/dL (200); Creatinine, Serum 0.92 mg/dL (0.70-1.30); EST Glomerular Filtration Rate 90 mL/min (>60); Est Glom Filt Rate - Afr Amer 108 mL/min (>60); Glucose 87 mg/dL (74-106); High Density Lipoprotein 61 mg/dL; PSA,Total - Annual Screen 0.54 ng/mL (0.00-4.00); Potassium 3.9 mmol/L (3.5-5.1); Sodium Level 137 mmol/L (136-145); Triglycerides 185 mg/dL; Very Low Density Lipoprotein 37 mg/dL (5-40)
[2018-10-12 12:41] LABS: Absolute Lymphocyte Count 1.08 X10^3/uL (0.83-4.51); Absolute Neutrophil Count 4.4 X10^3/uL (2.0-7.7); Basophil# 0.07 X10^3/uL; Basophil% 1.1 % (0-1); Eosinophil# 0.08 X10^3/uL; Eosinophils% 1.2 % (0-5); Hematocrit 47.2 % (40-54); Hemoglobin 15.6 g/dL (13.0-16.5); Lymphocyte # 1.08 X10^3/ul (4.0); Lymphocyte % 16.5 % (19-41); Mean Corp Hgb Conc 33.1 g/dL (32-36); Mean Corpuscular Hgb 29.7 pg (27.0-32.0); Mean Corpuscular Volume 89.7 fL (80-94); Mean Platelet Vol. 10.4 fl (6.2-12.0); Monocyte# 0.87 X10^3/uL; Monocyte% 13.3 % (0-10); NRBC Flagged by Analyzer 0 % (0-5); Neutrophil # 4.41 X10^3/uL (2.7-7.7); Neutrophil % 67.4 % (47-70); Platelet Count 231 K/mm3 (150-450); RBC Distribution Width CV 12.5 % (11.6-14.6); RBC Distribution Width SD 41.2 fl (35.1-43.9); Red Blood Count 5.26 M/mm3 (4.6-6.2); White Blood Count 6.5 K/mm3 (4.4-11.0)
== END ==
PROVIDERS: Family Provider Family Medicine; PCP Family Medicine; Referring Provider Family Medicine; Visit Provider Nurse Practitioner Family
DX: Z00.00 Encounter for general adult medical examination without abnormal findings (principal); Z12.5 Encounter for screening for malignant neoplasm of prostate; Z87.19 Personal history of other diseases of the digestive system; E78.5 Hyperlipidemia, unspecified
CPT/HCPCS: 36415; 80048; 80061; 84153; 85025; G0103

== ENCOUNTER → 2020-08-07 14:13 | Outpatient (CLI) | payer OTHER, SELFPAY ==
[2019-08-22 13:16] VITALS: BMI 23.6
[2020-08-07 17:27] LABS: Absolute Lymphocyte Count 1.55 X10^3/uL (0.83-4.51); Absolute Neutrophil Count 4.8 X10^3/uL (2.0-7.7); Basophil# 0.08 X10^3/uL; Basophil% 1.1 % (0-1); Eosinophil# 0.11 X10^3/uL; Eosinophils% 1.5 % (0-5); Hematocrit 49.8 % (40-54); Hemoglobin 16.3 g/dL (13.0-16.5); Lymphocyte # 1.55 X10^3/ul (0.83-4.51); Mean Corp Hgb Conc 32.7 g/dL (32-36); Mean Corpuscular Hgb 30.2 pg (27.0-32.0); Mean Corpuscular Volume 92.4 fL (80-94); Mean Platelet Vol. 11.1 fl (6.2-12.0); Monocyte# 0.77 X10^3/uL; Monocyte% 10.4 % (0-10); NRBC Flagged by Analyzer 0 % (0-5); Neutrophil # 4.83 X10^3/uL (2.7-7.7); Neutrophil % 65.5 % (47-70); Platelet Count 255 K/mm3 (150-450); RBC Distribution Width CV 11.9 % (11.6-14.6); RBC Distribution Width SD 40.8 fl (35.1-43.9); Red Blood Count 5.39 M/mm3 (4.6-6.2); White Blood Count 7.4 K/mm3 (4.4-11.0)
[2020-08-07 17:47] LABS: Anion Gap 7 (5-15); BUN 18 mg/dL (7-18); BUN/Creat Ratio 16.8 RATIO (10-20); Calcium,Total 9.1 mg/dL (8.5-10.1); Chloride 104 mmol/L (98-107); Cholesterol 232 mg/dL (200); Creatinine, Serum 1.07 mg/dL (0.70-1.30); EST Glomerular Filtration Rate 75 mL/min (>60); Est Glom Filt Rate - Afr Amer 90 mL/min (>60); Glucose 84 mg/dL (74-106); High Density Lipoprotein 44 mg/dL; Potassium 4.3 mmol/L (3.5-5.1); Sodium Level 137 mmol/L (136-145); Triglycerides 388 mg/dL; Very Low Density Lipoprotein 78 mg/dL (5-40)
== END ==
PROVIDERS: PCP Family Medicine; Referring Provider Family Medicine; Visit Provider Family Medicine
DX: I10 Essential (primary) hypertension (principal); R42 Dizziness and giddiness
CPT/HCPCS: 36415; 80048; 80061; 85025

== ENCOUNTER → 2021-09-17 | Outpatient (CLI) | payer OTHER, SELFPAY ==
[2021-09-17 12:40] LABS: Anion Gap 8 (5-15); BUN 20 mg/dL (7-18); BUN/Creat Ratio 20.5 RATIO (10-20); Calcium,Total 9.1 mg/dL (8.5-10.1); Chloride 106 mmol/L (98-107); Cholesterol 209 mg/dL (200); Creatinine, Serum 0.98 mg/dL (0.70-1.30); EST Glomerular Filtration Rate 83 mL/min (>60); Est Glom Filt Rate - Afr Amer 100 mL/min (>60); Glucose 88 mg/dL (74-106); High Density Lipoprotein 52 mg/dL; Potassium 3.7 mmol/L (3.5-5.1); Sodium Level 138 mmol/L (136-145); Triglycerides 193 mg/dL; Very Low Density Lipoprotein 39 mg/dL (5-40)
== END | disposition home or self-care (01) ==
LOC: MFPLAB 09:41
PROVIDERS: PCP Family Medicine; Referring Provider Family Medicine; Visit Provider Family Medicine
DX: I10 Essential (primary) hypertension (principal)
CPT/HCPCS: 36415; 80048; 80061

== ENCOUNTER → 2021-12-15 | Outpatient (CLI) | payer OTHER, SELFPAY ==
--- NOTE | 2021-12-15 10:12 | RAD_ITS ---
STUDY: X-RAY - LEFT SHOULDER REASON FOR EXAM: Left shoulder pain. TECHNIQUE: 4 view(s) of the shoulder. COMPARISON: None. FINDINGS: Normal glenohumeral articulation. Normal acromioclavicular joint. Normal acromion. There is an anchor in the humeral head. The soft tissue structures are unremarkable. Normal visualized pulmonary apex. RAD/Shoulder min 2 Views IMPRESSION: Kerrick in the humeral head. Otherwise, unremarkable x-ray examination of the left shoulder. Electronically Signed: Horacio Godoy MD at 14:30 EDT ,
== END | disposition home or self-care (01) ==
LOC: MTRAD 10:09
PROVIDERS: PCP Family Medicine; Referring Provider Family Medicine; Visit Provider Family Medicine
DX: M25.512 Pain in left shoulder (principal)
CPT/HCPCS: 73030

== ENCOUNTER → 2022-01-19 | Outpatient (CLI) | payer OTHER, SELFPAY ==
[2022-01-19 13:19] LABS: ALB/GLOB Ratio 0.9 RATIO (0.9-2.4); AST(SGOT) 22 U/L (15-37); Alanine Aminotransfer ALT/SGPT 50 U/L (16-61); Albumin, Serum 3.6 g/dL (3.2-5.0); Alkaline Phosphatase 135 U/L (45-117); Anion Gap 8 (5-15); BUN 16 mg/dL (7-18); Calcium,Total 9.1 mg/dL (8.5-10.1); Chloride 103 mmol/L (98-107); Cholesterol 180 mg/dL (200); Creatinine, Serum 1.07 mg/dL (0.70-1.30); EST Glomerular Filtration Rate 74 mL/min (>60); Est Glom Filt Rate - Afr Amer 90 mL/min (>60); Globulin 3.9 g/dL (2.2-4.2); Glucose 95 mg/dL (74-106); High Density Lipoprotein 56 mg/dL; Potassium 4.5 mmol/L (3.5-5.1); Protein, Total 7.5 g/dL (6.4-8.2); Sodium Level 135 mmol/L (136-145); Triglycerides 108 mg/dL; Very Low Density Lipoprotein 22 mg/dL (5-40)
== END | disposition home or self-care (01) ==
LOC: MFPLAB 09:39
PROVIDERS: PCP Family Medicine; Visit Provider Family Medicine
DX: I10 Essential (primary) hypertension (principal)
CPT/HCPCS: 36415; 80053; 80061

== ENCOUNTER → 2022-07-13 | Outpatient (CLI) | payer OTHER, SELFPAY ==
[2022-07-13 12:55] LABS: ALB/GLOB Ratio 1.1 RATIO (0.9-2.4); AST(SGOT) 16 U/L (15-37); Alanine Aminotransfer ALT/SGPT 32 U/L (16-61); Albumin, Serum 3.9 g/dL (3.2-5.0); Alkaline Phosphatase 105 U/L (45-117); Anion Gap 3 (5-15); BUN 16 mg/dL (7-18); BUN/Creat Ratio 14.8 RATIO (10-20); Chloride 105 mmol/L (98-107); Cholesterol 200 mg/dL (200); Creatinine, Serum 1.08 mg/dL (0.70-1.30); EST Glomerular Filtration Rate 73 mL/min (>60); Est Glom Filt Rate - Afr Amer 89 mL/min (>60); Globulin 3.5 g/dL (2.2-4.2); Glucose 100 mg/dL (74-106); High Density Lipoprotein 55 mg/dL; Potassium 4.4 mmol/L (3.5-5.1); Protein, Total 7.4 g/dL (6.4-8.2); Sodium Level 135 mmol/L (136-145); Triglycerides 210 mg/dL; Very Low Density Lipoprotein 42 mg/dL (5-40)
== END | disposition home or self-care (01) ==
LOC: MFPLAB 10:19
PROVIDERS: PCP Family Medicine; Visit Provider Family Medicine
DX: E78.5 Hyperlipidemia, unspecified (principal)
CPT/HCPCS: 36415; 80053; 80061

== ENCOUNTER → 2023-12-13 | Outpatient (CLI) | payer OTHER, SELFPAY ==
[2023-12-13 13:12] LABS: AST(SGOT) 19 U/L (15-37); Alanine Aminotransfer ALT/SGPT 31 U/L (16-61); Albumin, Serum 3.8 g/dL (3.2-5.0); Alkaline Phosphatase 101 U/L (45-117); Anion Gap 4 (5-15); BUN 12 mg/dL (7-18); BUN/Creat Ratio 12.3 RATIO (10-20); Calcium,Total 9.1 mg/dL (8.5-10.1); Chloride 106 mmol/L (98-107); Cholesterol 172 mg/dL (200); Creatinine, Serum 0.98 mg/dL (0.70-1.30); EST Glomerular Filtration Rate 82 mL/min (>60); Est Glom Filt Rate - Afr Amer 99 mL/min (>60); Globulin 3.8 g/dL (2.2-4.2); Glucose 96 mg/dL (74-106); High Density Lipoprotein 64 mg/dL; Potassium 4.4 mmol/L (3.5-5.1); Protein, Total 7.6 g/dL (6.4-8.2); Sodium Level 136 mmol/L (136-145); Triglycerides 129 mg/dL; Very Low Density Lipoprotein 26 mg/dL (5-40)
== END | disposition home or self-care (01) ==
PROVIDERS: PCP Family Medicine; Visit Provider Family Medicine
DX: R03.0 Elevated blood-pressure reading, without diagnosis of hypertension (principal)
CPT/HCPCS: 36415; 80053; 80061

== ENCOUNTER → 2024-01-04 | Outpatient (CLI) | payer OTHER, SELFPAY ==
--- NOTE | 2024-01-04 09:35 | CDU_ITS ---
Reason For Study: CAD Rt. Velocities/BP Lt. Velocities/BP Prox CCA 76.8/15.4 cm/sec. Prox CCA 84.4/13.5 cm/sec. Mid CCA 75.9/17.3 cm/sec. Mid CCA 74.9/19.2 cm/sec. Dist CCA 56/12.6 cm/sec. Dist CCA 65.5/18.2 cm/sec. Prox ICA 46.6/13.5 cm/sec. Prox ICA 46.5/8 cm/sec. Mid ICA 73/26.7 cm/sec. Mid ICA 72.9/31.1 cm/sec. Dist ICA 90/37.1 cm/sec. Dist ICA 76.2/30 cm/sec. Rt. ICA/CCA = 1.19. Lt. ICA/CCA = 1.02. Prox ECA 120.7/17.6 cm/sec. Prox ECA 87.2/13.5 cm/sec. Rt. Vert. 33.7/14.4 cm/sec. Lt. Vert. 33.4/5.5 cm/sec. Right Extracranial There is homogeneous, smooth atherosclerotic plaque noted in the right common carotid artery. There is heterogeneous, irregular atherosclerotic plaque noted in the right internal carotid artery. There is intimal thickening but no significant atherosclerotic plaque noted in the right external carotid artery. Antegrade flow is noted in the right vertebral artery. Left Extracranial There is homogeneous, smooth atherosclerotic plaque noted in the left common carotid artery. There is heterogeneous, irregular atherosclerotic plaque noted in the left internal carotid artery. There is intimal thickening but no significant atherosclerotic plaque noted in the left external carotid artery. Antegrade flow is noted in the left vertebral artery. Procedure Carotid Duplex 43726. This is a Carotid Duplex examination using B-mode, color flow and specral Doppler. Exam performed in department. VL/Carotid Duplex Ultrasound Interpretation Summary Mild (<50%) stenosis right extracranial internal carotid. Mild (<50%) stenosis left extracranial internal carotid. Patent and antegrade vertebrals bilaterally. Ordering Physician: Phu Banks Referring Physician: Phu Banks Performed By: Roselia Grimm RVT
== END | disposition home or self-care (01) ==
PROVIDERS: PCP Family Medicine; Referring Provider Family Medicine; Visit Provider Family Medicine
DX: I77.9 Disorder of arteries and arterioles, unspecified (principal)
CPT/HCPCS: 93880

== ENCOUNTER → 2024-01-17 | Outpatient (CLI) | payer OTHER, SELFPAY ==
--- NOTE | 2024-01-17 11:00 | LES_PTH ---
PATIENT: HAWA GRIDER LOC: [facility] U#:[id number] AGE/SX: 63/M ROOM: RE01/17/[address]: Dr. 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 Solar elastosis. AM 01/19/2024 MICROSCOPIC DESCRIPTION Slides are reviewed. GROSS DESCRIPTION Received in fixative is one container labeled with the patient's name and designated Left forearm. The specimen consists of a punch biopsy of marsh-white skin measuring 0.4cm in diameter and 0.2cm in length. The entire specimen is submitted in one cassette. 01/18/2024 TC:5 CPT:68033
== END | disposition home or self-care (01) ==
PROVIDERS: PCP Family Medicine; Referring Provider Family Medicine; Visit Provider Family Medicine
DX: D48.7 Neoplasm of uncertain behavior of other specified sites (principal)
CPT/HCPCS: 88305

== ENCOUNTER → 2024-11-22 | Outpatient (CLI) | payer MEDICARE, SELFPAY ==
[2024-11-22 15:56] LABS: AST(SGOT) 31 U/L (<=37); Alanine Aminotransfer ALT/SGPT 47 U/L (<=46); Albumin, Serum 4.4 g/dL (3.4-4.8); Alkaline Phosphatase 97 U/L (40-129); Anion Gap 14 (5-15); BUN 14 mg/dL (4-19); BUN/Creat Ratio 15.8 RATIO (10-20); Calcium,Total 9.4 mg/dL (7.6-11.0); Carbon Dioxide 21.2 mmol/L (21.0-32.0); Chloride 102 mmol/L (98-108); Cholesterol 252 mg/dL (<=200); Globulin 2.9 g/dL (2.2-4.2); Glucose 89 mg/dL (70-99); Low Density Lipoprotein Calc. 147 mg/dL; PSA,Total- Diagnostic 0.56 ng/mL (0.00-4.00); Potassium 3.8 mmol/L (3.3-5.1); Triglycerides 242 mg/dL; Very Low Density Lipoprotein 48 mg/dL (5-40); cholesterol:hdl ratio screen 4.47
== END | disposition home or self-care (01) ==
PROVIDERS: PCP Family Medicine; Referring Provider Family Medicine; Visit Provider Family Medicine
DX: Z00.00 Encounter for general adult medical examination without abnormal findings (principal); E78.5 Hyperlipidemia, unspecified
CPT/HCPCS: 36415; 80053; 80061; 84153